=== PATIENT | female | born 1985 | race Caucasian/White ===

== ENCOUNTER 2017-04-15 03:28 | Day surgery (SDC) | payer OTHER ==
[~2017-04-15] VITALS: Ht 160 cm; Wt 80.0 kg
[2017-04-15] MEDS ORDERED: NS 1,000 ML IV ONE (04:15)
[2017-04-15] MEDS ORDERED: MORPHINE 4 MG/ML 1ML SYRINGE IV ONE (04:15)
[2017-04-15] MEDS ORDERED: METOCLOPRAMIDE INJ 10MG/2ML VIAL (J2765) IV ONE (04:15)
[2017-04-15 04:24] LABS: BASO % 0.3 % (0.0-1.0); EOS # 0.2 10^3/uL (0.0-0.50); EOS % 1.5 % (0.0-3.0); IMMATURE GRANULOCYTE % 0.4 % (0-0); LYMPH # 2.1 10^3/uL (1.5-6.5); LYMPH % 18.7 % (24.0-44.0); MEAN CORPUSCULAR HGB CONC 34.6 g/dl (32.0-36.5); MONO % 8.5 % (0.0-5.0); NEUTROPHILS # 8.1 10^3/uL (1.8-7.7); NEUTROPHILS % 70.6 % (36.0-66.0); PLATELET COUNT, AUTOMATED 238 10^3/uL (150-450); RED CELL DISTRIBUTION WIDTH 12.3 % (11.5-14.5); WHITE BLOOD COUNT 11.4 10^3/uL (4.0-10.0)
[2017-04-15 04:48] LABS: CONTROL LINE HCG INT CTR LINE PRESENT
[2017-04-15 04:58] LABS: ALBUMIN 3.7 GM/DL (3.2-5.2); ALKALINE PHOSPHATASE 75 U/L (45-117); ALT/SGPT 20 U/L (12-78); AMYLASE 32 U/L (25-115); ANION GAP 7 MEQ/L (8-16); AST/SGOT 10 U/L (7-37); BILIRUBIN,DIRECT < 0.1 MG/DL (0.0-0.2); BILIRUBIN,TOTAL 0.3 MG/DL (0.2-1.0); BLOOD UREA NITROGEN 16 MG/DL (7-18); CALCIUM LEVEL 9.1 MG/DL (8.5-10.1); CARBON DIOXIDE LEVEL 28 MEQ/L (21-32); CHLORIDE LEVEL 104 MEQ/L (98-107); CREATININE FOR GFR 0.77 MG/DL (0.55-1.02); GLOMERULAR FILTRATION RATE > 60.0 (>60); GLUCOSE, FASTING 107 MG/DL (70-105); POTASSIUM SERUM 3.8 MEQ/L (3.5-5.1); SODIUM LEVEL 139 MEQ/L (136-145); TOTAL PROTEIN 7.8 GM/DL (6.4-8.2)
[2017-04-15] MEDS ORDERED: HYDROmorphone HCL 1 MG/ML SYRINGE (J1170) IV ONE (05:30)
[2017-04-15] MEDS ORDERED: ISOVUE-370 76% 100ML VIAL (Q9967) As Ordered ONE (06:14)
--- NOTE | 2017-04-15 07:00 | REPUSA ---
CLINICAL HISTORY: Abdominal pain. TECHNIQUE: Multiple axial, sagittal and coronal CT images were obtained through the abdomen and pelvi s after administration of oral and intravenous contrast material. COMMENTS: Impacted gallstones at the neck of the gallbladder. Distended, thickened gallbladder. Surrounding inflammatory fat stranding and minimal free fluid. Moderate amount of fecal residue in the large bowels. 3.5 cm left ovarian cyst. Small amount of free pelvic fluid. The liver is of uniform attenuation without mass or defect. There is no intra or extrahepatic biliary ductal dilatation. The spleen is normal. The pancreas is of normal contour and attenuation characte ristics. There is no evidence of adrenal mass. Both kidneys demonstrate prompt and equal nephrograms. The kidneys are normal in size, shape and conf iguration. There is no evidence of renal or ureteral mass. No renal or ureteral calculi are identifie d. There is no hydroureter or hydronephrosis. No evidence for appendicitis. There is no bowel wall thickening. No evidence for small or large walter l obstruction. There is no evidence of intrinsic or extrinsic bladder mass. Images of the lung bases show no evidence of pleural or parenchymal mass. There are no pleural effusi ons. The bony structures are free of lytic or blastic lesions. Multilevel degenerative changes are seen in volving the thoracolumbar spine. Scattered calcifications are seen involving the aorta and major bran ches compatible with atherosclerosis. IMPRESSION: Cholelithiasis. Suspected mild acute cholecystitis. Left ovarian cyst. Small amount of free pelvic fluid. Thank you for your kind referral of this patient.
[2017-04-15] MEDS ORDERED: PIPERACILLIN/TAZOBACTAM SOD 3.375 GM in APPROPRIATE DILUENT 1 EA IV ONE (07:45)
--- NOTE | 2017-04-15 08:39 | REP ---
Clinical: Upper abdominal pain. Technique: Real time todd scale ultrasound examination using curved array transducer. Findings: The gallbladder is distended measuring 11.5 cm in length and approximately 4.2 cm diameter with mild wall thickening to 4 mm and trace pericholecystic fluid. Layering sludge and small stones are identified within the gallbladder along with a 19 mm stone obstructing the gallbladder neck/cystic duct. There is no evidence for biliary ductal dilatation and the common bile duct currently measures 5.6 mm diameter. Liver and visualized pancreas are unremarkable and without focal pancreatic or hepatic lesions identified. The right kidney is normal in reniform shape without hydronephrosis and measures 11.9 x 7.1 x 5.5 cm. No significant ascites noted. Impression: Findings described above consistent with acute cholecystitis possibly secondary to a 19 mm gallstone which appears to be lodged at the junction of the gallbladder neck/cystic duct. Signed by Joao Turner MD 04/15/2017 08:30 A
[2017-04-15] MEDS ORDERED: MORPHINE 2 MG/ML 1ML SYRINGE IV PRN (10:30)
[2017-04-15] MEDS ORDERED: ONDANSETRON 4MG/2ML VIAL (J2405) IV PRN ×2 (10:30→16:45)
[2017-04-15] MEDS ORDERED: MORPHINE 4 MG/ML 1ML SYRINGE IV PRN (10:30)
[2017-04-15] MEDS ORDERED: KETOROLAC 30 MG/ML VIAL (J1885) IV PRN (10:30)
[2017-04-15] MEDS ORDERED: METOCLOPRAMIDE INJ 10MG/2ML VIAL (J2765) IV PRN (10:30)
[2017-04-15] MEDS ORDERED: METOCLOPRAMIDE INJ 10MG/2ML VIAL (J2765) As Ordered ONE (10:46)
[2017-04-15] MEDS ORDERED: ACET50TAOT PO (10:47)
--- NOTE | 2017-04-15 11:14 | HPE ---
DATE OF ADMISSION: 04/15/2017 SURGICAL DAY CARE STATUS: 04/15/2017 REASON FOR ADMISSION: Cholelithiasis with acute cholecystitis. HISTORY OF PRESENT ILLNESS: The patient is a pleasant 31-year-old woman who presented to the emergency department at 3:28 in the morning of [id number] of April complaining of upper abdominal pain. She reports that over the last week she has had frequent bouts of pain that awaken her in the filter press tender head hours and last for hours. She reports that she has had perhaps 3 days over the past week where she did not awaken with pain. Each other night, she has been awakened as reported. She describes pain that starts slightly to the left of the midline in the left upper quadrant, but then settles into the epigastrium and becomes severe. She has associated nausea. She reports that she had one episode of pain perhaps 3 years ago, but this was not evaluated at the time. One year ago, she reports having had a similar pain, but again no further testing was done. She reports that over the last 2 days her pain has not completely resolved at any time. She has had a persistent dull ache. She has identified that eating seems to make the pain worse and so she has been cutting back on her diet the last few days. Last evening, she went to bed still feeling somewhat uncomfortable and was awakened at the 1:38 this morning by severe pain. She presented to the emergency department and had one episode of emesis after presenting. She received some morphine without any significant improvement in her pain and subsequently had a small dose of Dilaudid which provided relief. She still reports some discomfort present. On exam, she was found to have some right upper quadrant tenderness. A CT scan of the abdomen and pelvis showed some gallbladder wall thickening and distention. An ultrasound confirmed gallbladder wall thickening with a wall thickness measured at 4 mm. She has some sludge or small stones within the gallbladder and a single larger stone that appears to be impacted in the area of the gallbladder neck. Her white blood cell count was slightly elevated on presentation to the emergency department. Her clinical picture is felt to be consistent with acute cholecystitis and she is admitted now to be placed on antibiotics with cholecystectomy. ALLERGIES: The patient denies any known drug allergies. MEDICATIONS: The patient is not normally on any prescription medications. She has taken some omeprazole over the last 2 days to see if this would help, but this was not of any clear benefit. SURGICAL HISTORY: Significant for a right ovarian cystectomy many years ago for a large cyst with torsion. MEDICAL HISTORY: She is generally healthy. She is a never smoker and denies alcohol use. She has two children, ages 8 and 3. 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 FAMILY HISTORY: Noncontributory. REVIEW OF SYSTEMS: Reveals no history of chest pain or palpitations. She denies any shortness of breath, wheezing or cough. She has had no melena, hematochezia, diarrhea, or constipation. She does report that her bowel movements have been somewhat more frequent and softer the last week or so. She is not having any dysuria or hematuria. She denies any bone or joint problems. She has no history of chronic severe headaches, seizures or stroke. The remainder of the review of systems is unremarkable. PHYSICAL EXAMINATION: The patient's height is recorded as 5 feet 3 inches with a weight of 80 kg. She is alert, oriented and pleasant. Her most recent vital signs showed her to be afebrile with a pulse of 77 and a blood pressure of 114/66. Sclerae are anicteric. Mucous membranes are moist to somewhat tacky. The neck is supple without mass. She has no palpable supraclavicular nodes. There is no cervical bruit. Heart exam shows a regular rate and rhythm. The lungs are clear to auscultation. The abdomen is mildly obese. She has some bowel sounds present. The abdomen is soft. There is no significant tenderness to percussion. She has some mild referred tenderness from the left upper quadrant to the right upper quadrant on palpation. She has some mild to moderate direct tenderness in the right subcostal area. There is no mass appreciated. She has no guarding or rebound. There is no evidence of abdominal hernia. The lower extremities show palpable posterior tibial pulses and she has palpable radial pulses bilaterally. LABORATORY STUDIES: Show a white count of 11.4 with a differential count showing 71% neutrophils, 19% lymphocytes and 8 monocytes. Hemoglobin is 12 with hematocrit of 36 and the platelet count is 238,000. Urinalysis shows no evidence of a urinary tract infection. Chemistries show a glucose of 107, BUN of 16, creatinine 0.8. Electrolytes are normal with normal liver function tests. She has a lipase that is normal at 113. Amylase is 32. Her hCG is negative. Her CT scan and ultrasound images are reviewed personally. I would certainly agree that she has some gallbladder wall thickening with a stone in the gallbladder neck and some others sludge or stones within the gallbladder. IMPRESSION: Cholelithiasis with acute cholecystitis. PLAN: The patient will be brought into the hospital on surgical day care status. She was started on antibiotics by the emergency room (ER) physician and these will be continued. She will be kept nothing by mouth (n.p.o.) with some IV hydration. She will be provided with analgesics or antiemetics as necessary. I counseled her that the treatment for acute cholecystitis is cholecystectomy. I will add her to the urgent schedule for today. The schedule will probably have us preceding later in the day, but I do not see a problem with this. She was counseled for the surgery of laparoscopic cholecystectomy to include the risks. She had an opportunity to ask questions and desires to proceed with the plan as I have outlined it.
[2017-04-15] MEDS: LR 1,000 ML IV SCH ×2 (11:31→20:27)
[2017-04-15] MEDS: PIPERACILLIN/TAZOBACTAM SOD 2.25 GM in APPROPRIATE DILUENT 1 EA IV SCH ×2 (14:00→15:06)
[2017-04-15] MEDS ORDERED: BUPIVACAINE HCL 0.25% 30 ML VIAL As Ordered ONE (15:01)
[2017-04-15] MEDS ORDERED: fentaNYL 250 MCG/5 ML INJECTION (J3010) As Ordered ONE (15:14)
[2017-04-15] MEDS ORDERED: ROCURONIUM BROMIDE 50 MG/5 ML VIAL As Ordered ONE (15:14)
[2017-04-15] MEDS ORDERED: PROPOFOL 200 MG/20 ML VIAL As Ordered ONE (15:14)
[2017-04-15] MEDS ORDERED: MIDAZOLAM INJ 2 MG/2 ML VIAL (J2250) As Ordered ONE (15:14)
[2017-04-15] MEDS ORDERED: PHENYLephrine HCL 500 MCG/5 ML (100MCG/ML) SYRINGE (J2370) As Ordered ONE (15:14)
[2017-04-15] MEDS ORDERED: LIDOCAINE 2% INJ 100 MG/5 ML SDV (FOR ANES.) As Ordered ONE (15:14)
[2017-04-15] MEDS ORDERED: dexameTHASONE 4 MG/ML 1ML VIAL (J1100) As Ordered ONE (15:21)
[2017-04-15] MEDS ORDERED: KETOROLAC 60 MG/2 ML VIAL (J1885) As Ordered ONE (15:36)
[2017-04-15] MEDS ORDERED: ONDANSETRON 4MG/2ML VIAL (J2405) As Ordered ONE (15:36)
[2017-04-15] MEDS ORDERED: GLYCOPYRROLATE INJ 0.2 MG/ML 2 ML VIAL As Ordered ONE (15:36)
[2017-04-15] MEDS ORDERED: NEOSTIGMINE 10 MG/10 ML VIAL (J2710) As Ordered ONE (15:36)
[2017-04-15] MEDS ORDERED: DESFLURANE 240 ML INHALANT As Ordered ONE (16:06)
[2017-04-15] MEDS ORDERED: ACETAMINOPHEN TAB 650MG DOSE (2X325MG) PO PRN (16:30)
[2017-04-15] MEDS ORDERED: MORPHINE 10 MG/ML 1ML VIAL IV PRN (16:45)
[2017-04-15] MEDS ORDERED: LR 1,000 ML IV SCH (16:45)
[2017-04-15] MEDS ORDERED: fentaNYL 100 MCG/2 ML INJECTION (J3010) As Ordered ONE (16:52)
[2017-04-15] MEDS: fentaNYL 100 MCG/2 ML INJECTION (J3010) IV PRN ×4 (16:54→17:09)
[2017-04-15] MEDS ORDERED: NORCO, ANEXSIA 5/325MG TABLET (HYDROcodone/ACETAMINOPHEN) As Ordered ONE (17:00)
[2017-04-15] MEDS: NORCO, ANEXSIA 5/325MG TABLET (HYDROcodone/ACETAMINOPHEN) PO PRN ×2 (17:05→20:26)
[2017-04-15 17:30] VITALS: BP 133/76
[2017-04-15 18:00] VITALS: BP 143/80
[2017-04-15 19:53] VITALS: BP 128/76
[2017-04-15 22:00] VITALS: BP 133/71
[2017-04-16] MEDS: NORCO, ANEXSIA 5/325MG TABLET (HYDROcodone/ACETAMINOPHEN) PO PRN ×4 (01:39→16:03)
[2017-04-16 02:00] VITALS: BP 134/80
[2017-04-16] MEDS: PIPERACILLIN/TAZOBACTAM SOD 2.25 GM in APPROPRIATE DILUENT 1 EA IV SCH ×3 (02:11→14:13)
[2017-04-16] MEDS: LR 1,000 ML IV SCH (02:45)
[2017-04-16 06:00] VITALS: BP 127/66
--- NOTE | 2017-04-16 07:36 | RO ---
DATE OF PROCEDURE: 04/15/2017 PREOPERATIVE DIAGNOSIS: Acute cholecystitis. POSTOPERATIVE DIAGNOSIS: Acute cholecystitis. PROCEDURE PERFORMED: Laparoscopic cholecystectomy. SURGEON: Dr. Jacob De Jesus ANESTHESIA: General. INDICATIONS FOR THE PROCEDURE: The patient is a 31-year-old woman who presented to the emergency department with a 1-week history of on and off pain in the epigastrium. This had been fairly persistent for the last 36 hours. She presented to the emergency department with epigastric discomfort. A CT scan and ultrasound were done in the emergency department. These both confirmed thickening of the gallbladder wall with a stone in the gallbladder neck. The patient's clinical history and testing were felt to be consistent with acute cholecystitis and she is now for a laparoscopic cholecystectomy. OPERATIVE PROCEDURE: The patient was placed under general endotracheal anesthesia. The patient's abdomen was prepped and draped in a sterile fashion. 0.25% Marcaine was infiltrated at each of the trocar sites. A short supraumbilical midline incision was made and deepened through the subcutaneous tissues. The fascia was opened in the midline and the peritoneum was opened bluntly. A Wiley cannula was inserted and the abdomen was inflated with carbon dioxide gas. The laparoscope was inserted. Initial examination showed a normal-appearing liver. The gallbladder was noted to be mildly erythematous and quite edematous. It appeared somewhat distended. Visualized portions of the small and large bowel appeared normal. Two 5 mm trocars were placed in the right upper quadrant and a third 5 mm trocar was placed in the left upper quadrant. The patient was tilted to a reverse Trendelenburg position and rolled to the left. The gallbladder was grasped and elevated. The gallbladder edema seemed most pronounced in the body and neck region of the gallbladder. The peritoneum was opened using the hook cautery. The cholecystic artery was identified first along the left side of the gallbladder neck. This was dissected free, doubly clipped with hemoclips and divided. With further dissection, the junction of the cystic duct and the common bile duct was identified and the cystic duct was then dissected free over a several centimeter distance to the gallbladder neck. The cystic duct was clipped and divided. The gallbladder was then dissected free from the gallbladder bed using cautery dissection. Dissection was somewhat slowed by the marked edema of the gallbladder wall. The gallbladder was not perforated in the course of dissection. The gallbladder was removed completely and placed within an Endopouch. Inspection revealed a small amount of bleeding along the right side of the falciform ligament. Retraction had led to a very small superficial capsular tear. This area was cauterized and inspection showed no evidence of any ongoing bleeding. The gallbladder bed was inspected and there was no bleeding and no bile leak. The right upper quadrant was irrigated and the irrigation was removed. The patient was returned to a flat position. The abdomen was deflated and the trocars were removed. The gallbladder was recovered through the Wiley site and sent for permanent pathology. The fascia at the Wiley site was closed with interrupted simple sutures of #2-0 Vicryl. The skin incisions were all closed with buried #5-0 Vicryl and Steri-Strips. Light dressings were applied. The patient tolerated the procedure well without apparent complication. She was awakened in the operating room, extubated and moved to the recovery room in stable condition. JOHN
[2017-04-16 09:00] VITALS: BP 132/70
[2017-04-16 13:29] VITALS: BP 139/73
[2017-04-16 14:00] VITALS: BP 142/85
[2017-04-16] MEDS ORDERED: NORCOTAB PO (17:18)
--- NOTE | 2017-04-16 17:43 | IPN ---
DATE: 04/16/2017 SUBJECTIVE: The patient is now one day postoperative from a laparoscopic cholecystectomy for acute cholecystitis. She has been tolerating clear liquids well. She denies any nausea or vomiting. She is ambulatory with little discomfort. She has been taking some Cushman tablets intermittently for discomfort. OBJECTIVE: VITAL SIGNS: She is afebrile with stable vitals. INTAKE AND OUTPUT: Show 1550 in, and 1220 out yesterday, and she is taking liquids well today. PHYSICAL EXAMINATION: The patient is alert, oriented and cooperative. Heart and lung exam is unremarkable. The abdomen is mildly obese with active bowel sounds. Her incisions are all healing well with no sign of infection or hematoma. The abdomen is otherwise soft and without undue tenderness. IMPRESSION: Excellent postoperative results one day postop from laparoscopic cholecystectomy. PLAN: The patient will be discharged home today. She can advance her diet as tolerated. I have asked her to followup with me in about 10 days for a final check. She can take Tylenol or ibuprofen as needed for mild pain and I will send in a prescription for a few Cushman tablets to take on an as-needed basis for more severe pain. She can shower 24 hours after the surgery. I instructed her to leave the Steri-Strips in place to come off on their own. She is to call the office for any significant problems.
== END 2017-04-16 18:04 | disposition home or self-care (01) ==
LOC: M ED 03:28 → M SDC 10:20 → M MS5PR 12:18 → M SDC 04-16 18:04
PROVIDERS: ATTEND Surgery
DX: K80.00 Calculus of gallbladder with acute cholecystitis without obstruction (principal); K91.81 Other intraoperative complications of digestive system
CPT/HCPCS: 47562; 74177; 76705; 80048; 80076; 81001; 82150; 83690; 84703; 85025; 87086; 88304; 96374; 96375; 96376; 99284; J1100; J1170; J1885; J2250; J2370; J2405; J2543; J2710; J2765; J3010; Q9967

== ENCOUNTER → 2018-11-07 | Outpatient (REF) | payer OTHER ==
[~2018-11-07] MED LIST: ACET500T15 PO; HYDR-3715 PO
== END ==
LOC: M LABDRWAD 12:20
PROVIDERS: ATTEND Physician Assistant Medical
DX: J02.9 Acute pharyngitis, unspecified (principal)

== ENCOUNTER → 2020-01-02 | Outpatient (REF) | payer OTHER | LOC: M LAB REF 10:11 | PROVIDERS: ATTEND Physician Assistant | DX: N39.0 Urinary tract infection, site not specified (principal) ==

== ENCOUNTER → 2020-06-15 | Outpatient (REF) | payer OTHER ==
[2020-06-15 12:51] LABS: BASO % 0.6 % (0.0-1.0); EOS # 0.1 10^3/uL (0.0-0.5); EOS % 2.1 % (0.0-3.0); HEMOGLOBIN 11.3 g/dl (12.0-15.5); LYMPH # 1.7 10^3/uL (1.5-5.0); LYMPH % 25.5 % (24.0-44.0); MEAN CORPUSCULAR HEMOGLOBIN 26.5 pg (27.0-33.0); MEAN CORPUSCULAR HGB CONC 32.3 g/dl (32.0-36.5); MONO # 0.4 10^3/uL (0.0-0.8); MONO % 5.6 % (0.0-5.0); NEUTROPHILS # 4.4 10^3/uL (1.5-8.5); NEUTROPHILS % 65.7 % (36.0-66.0); PLATELET COUNT, AUTOMATED 243 10^3/uL (150-450); RED BLOOD COUNT 4.27 10^6/uL (4.00-5.40); WHITE BLOOD COUNT 6.6 10^3/uL (4.0-10.0)
[2020-06-15 13:14] LABS: ALBUMIN 3.8 GM/DL (3.2-5.2); ALT/SGPT 19 U/L (12-78); BILIRUBIN,TOTAL 0.2 MG/DL (0.2-1.0); BLOOD UREA NITROGEN 15 MG/DL (7-18); CALCIUM LEVEL 9.2 MG/DL (8.5-10.1); CARBON DIOXIDE LEVEL 28 MEQ/L (21-32); CHLORIDE LEVEL 104 MEQ/L (98-107); CREATININE FOR GFR 0.63 MG/DL (0.55-1.30); GLOMERULAR FILTRATION RATE > 60.0 (>60); GLUCOSE, FASTING 105 MG/DL (70-100); POTASSIUM SERUM 4.1 MEQ/L (3.5-5.1); SODIUM LEVEL 140 MEQ/L (136-145); TOTAL PROTEIN 7.4 GM/DL (6.4-8.2)
[2020-06-15 13:56] LABS: HIV 1&2 SCREEN CENTAUR NEGATIVE (NEGATIVE)
== END ==
LOC: M SFHCADAM 10:21
PROVIDERS: ATTEND Physician Assistant Medical
DX: E66.9 Obesity, unspecified (principal); R03.0 Elevated blood-pressure reading, without diagnosis of hypertension; Z11.59 Encounter for screening for other viral diseases; Z11.4 Encounter for screening for human immunodeficiency virus [HIV]; R53.83 Other fatigue
CPT/HCPCS: 80053; 84443; 85025; 86803; 87389; G0463

== ENCOUNTER → 2020-07-13 | Outpatient (REF) | payer OTHER ==
[2020-07-13 12:25] LABS: HEMATOCRIT 35.2 % (36.0-47.0); MEAN CORPUSCULAR HEMOGLOBIN 26.5 pg (27.0-33.0); MEAN CORPUSCULAR HGB CONC 31.3 g/dl (32.0-36.5); MEAN CORPUSCULAR VOLUME 84.8 fl (80.0-96.0); PLATELET COUNT, AUTOMATED 269 10^3/uL (150-450); RED BLOOD COUNT 4.15 10^6/uL (4.00-5.40)
[2020-07-13 12:58] LABS: FOLATE 7.7 NG/ML; PERCENT SATURATION 10.8 % (13.2-45.0)
[2020-07-13 13:59] LABS: HEMOGLOBIN A1c 5.2 %
== END ==
LOC: M SFHCADAM 08:36
PROVIDERS: ATTEND Physician Assistant Medical
DX: E66.9 Obesity, unspecified (principal); D64.9 Anemia, unspecified; R73.01 Impaired fasting glucose
CPT/HCPCS: 82607; 82728; 82746; 83036; 83550; 85027; G0463

== ENCOUNTER → 2020-10-08 | Outpatient (REF) | payer OTHER | LOC: M SFHCWAGY 12:43 | PROVIDERS: ATTEND Nurse Practitioner Women's Health | DX: Z12.4 Encounter for screening for malignant neoplasm of cervix (principal) | CPT/HCPCS: 87624; G0123; G0463 ==

== ENCOUNTER → 2021-04-21 | Outpatient (CLI) | payer OTHER ==
[~2021-04-21] MED LIST changes: +PANT40TA29 PO
== END ==
LOC: M LABSMTC 11:14
PROVIDERS: ATTEND Anesthesiology
DX: Z01.812 Encounter for preprocedural laboratory examination (principal); Z20.822 Contact with and (suspected) exposure to COVID-19

== ENCOUNTER 2021-04-26 10:44 | Day surgery (SDC) | payer OTHER ==
[~2021-04-26] VITALS: Ht 160 cm; Wt 93.0 kg
[~2021-04-26 10:44] MED LIST changes: +LIDOCAINE 2% 100MG/5ML SDV (FOR ANES.) As Ordered ONE; +NS 1,000 ML IV ONE; +propofoL 500 MG/50 ML VIAL As Ordered ONE
[2021-04-26] MEDS ORDERED: propofoL 200 MG/20 ML VIAL As Ordered ONE (12:22)
--- NOTE | 2021-04-26 12:53 | ROOR ---
Patient Name: Annelise Lopez Procedure Date: 04/26/2021 12:04 PM Date of : 1985 Age: 35 Room: [facility] Gender: Female Note Status: Finalized Procedure: Upper GI endoscopy Indications: Dyspepsia, Dysphagia Providers: Artemio Zheng MD Referring MD: JENSEN Tracey Requesting Provider: Medicines: Monitored Anesthesia Care Complications: No immediate complications. Procedure: Pre-Anesthesia Assessment: - Prior to the procedure, a History and Physical was performed, and patient medications and allergies were reviewed. The patient is competent. The risks and benefits of the procedure and the sedation options and risks were discussed with the patient. All questions were answered and informed consent was obtained. Patient identification and proposed procedure were verified by the physician, the nurse and the anesthesiologist in the procedure room. Mental Status Examination: alert and oriented. Airway Examination: normal oropharyngeal airway and neck mobility. Respiratory Examination: clear to auscultation. CV Examination: normal. Prophylactic Antibiotics: The patient does not require prophylactic antibiotics. Prior Anticoagulants: The patient has taken no previous anticoagulant or antiplatelet agents. ASA Grade Assessment: II - A patient with mild systemic disease. After reviewing the risks and benefits, the patient was deemed in satisfactory condition to undergo the procedure. The anesthesia plan was to use monitored anesthesia care (MAC). Immediately prior to administration of medications, the patient was re-assessed for adequacy to receive sedatives. The heart rate, respiratory rate, oxygen saturations, blood pressure, adequacy of pulmonary ventilation, and response to care were monitored throughout the procedure. The physical status of the patient was re-assessed after the procedure. The Endoscope was introduced through the mouth, and advanced to the second part of duodenum. The upper GI endoscopy was accomplished without difficulty. The patient tolerated the procedure well. Findings: Mucosal changes including longitudinal furrows, white plaques, crepe paper esophagus and longitudinal markings were found in the middle third of the esophagus and in the lower third of the esophagus. Biopsies were obtained from the proximal and distal esophagus with cold forceps for histology of suspected eosinophilic esophagitis. Verification of patient identification for the specimen was done by the physician and nurse using the patient's name, date and medical record number. Estimated blood loss was minimal. The Z-line was regular and was found at the gastroesophageal junction. There is no endoscopic evidence of stenosis or stricture in the entire esophagus. Scattered mild inflammation characterized by erythema and granularity was found in the gastric antrum. Biopsies were taken with a cold forceps for Helicobacter pylori testing. Normal mucosa was found in the duodenal bulb, in the second portion of the duodenum, in the area of the papilla and in the third portion of the duodenum. Biopsies for histology were taken with a cold forceps for evaluation of celiac disease. Impression: - Esophageal mucosal changes suggestive of eosinophilic esophagitis. Biopsied. - Z-line regular, at the gastroesophageal junction. - Gastritis. Biopsied. - Normal mucosa was found in the duodenal bulb, in the second portion of the duodenum, in the area of the papilla and in the third portion of the duodenum. Biopsied. Recommendation: - Patient has a contact number available for emergencies. The signs and symptoms of potential delayed complications were discussed with the patient. Return to normal activities tomorrow. Written discharge instructions were provided to the patient. - High fiber diet. - Continue present medications. - Await pathology results. - Return to GI clinic in [facility] (address: [address] [place] [address], [address] [place] [address], [place], [place],[address]) in 4 -- 6 weeks. Please call GI clinic @ [phone] for apppointment date and time. - Return to primary care physician. - Check CBC, serum iron , transferrin and ferritin levels (fasting labs) in 2 months. Procedure Code(s): --- Professional --- 98717, Esophagogastroduodenoscopy, flexible, transoral; with biopsy, single or multiple Diagnosis Code(s): --- Professional --- K22.8, Other specified diseases of esophagus K29.70, Gastritis, unspecified, without bleeding R10.13, Epigastric pain R13.10, Dysphagia, unspecified CPT copyright 2019 [employer]. All rights reserved. The codes documented in this report are preliminary and upon storage garage manager review may be revised to meet current compliance requirements. Artemio Zheng MD Artemio Zheng MD 04/26/2021 12:53:20 PM Electronically signed by Artemio Zheng MD Number of Addenda: 0 Note Initiated On: 04/26/2021 12:04 PM Estimated Blood Loss: Estimated blood loss was minimal.
--- NOTE | 2021-04-26 12:58 | ROOR ---
Patient Name: Annelise Lopez Procedure Date: 04/26/2021 12:04 PM Date of : 1985 Age: 35 Room: [facility] Gender: Female Note Status: Finalized Procedure: Colonoscopy Indications: Iron deficiency anemia Providers: Artemio Zheng MD Referring MD: JENSEN Tracey Requesting Provider: Medicines: Monitored Anesthesia Care Complications: No immediate complications. Procedure: Pre-Anesthesia Assessment: - Prior to the procedure, a History and Physical was performed, and patient medications and allergies were reviewed. The patient is competent. The risks and benefits of the procedure and the sedation options and risks were discussed with the patient. All questions were answered and informed consent was obtained. Patient identification and proposed procedure were verified by the physician, the nurse and the anesthesiologist in the procedure room. Mental Status Examination: alert and oriented. Airway Examination: normal oropharyngeal airway and neck mobility. Respiratory Examination: clear to auscultation. CV Examination: normal. Prophylactic Antibiotics: The patient does not require prophylactic antibiotics. Prior Anticoagulants: The patient has taken no previous anticoagulant or antiplatelet agents. ASA Grade Assessment: II - A patient with mild systemic disease. After reviewing the risks and benefits, the patient was deemed in satisfactory condition to undergo the procedure. The anesthesia plan was to use monitored anesthesia care (MAC). Immediately prior to administration of medications, the patient was re-assessed for adequacy to receive sedatives. The heart rate, respiratory rate, oxygen saturations, blood pressure, adequacy of pulmonary ventilation, and response to care were monitored throughout the procedure. The physical status of the patient was re-assessed after the procedure. The Colonoscope was introduced through the anus and advanced to the terminal ileum, with identification of the appendiceal orifice and IC valve. The colonoscopy was performed without difficulty. The patient tolerated the procedure well. The quality of the bowel preparation was good. The terminal ileum, ileocecal valve, appendiceal orifice, and rectum were photographed. Scope insertion time was 2 minutes. Scope withdrawal time was 8 minutes. The total duration of the procedure was 10 minutes. Findings: The perianal and digital rectal examinations were normal. The terminal ileum appeared normal. No other significant abnormalities were identified in a careful examination of the remainder of the colon. Normal mucosa was found in the entire colon. Biopsies for histology were taken with a cold forceps from the right colon, left colon and rectosigmoid colon for evaluation of microscopic colitis. Verification of patient identification for the specimen was done by the physician and nurse using the patient's name, date and medical record number. Estimated blood loss was minimal. Non-bleeding external and internal hemorrhoids were found during retroflexion. The hemorrhoids were small. Impression: - The examined portion of the ileum was normal. - Normal mucosa in the entire examined colon. Biopsied. - Non-bleeding external and internal hemorrhoids. Recommendation: - Patient has a contact number available for emergencies. The signs and symptoms of potential delayed complications were discussed with the patient. Return to normal activities tomorrow. Written discharge instructions were provided to the patient. - High fiber diet. - Continue present medications. - Await pathology results. - Repeat colonoscopy at age 52 for screening purposes. - Return to GI clinic in [facility] (address: [address] [place] [address], [address] [place] [address], [place], [place],[address]) in 4 -- 6 weeks. Please call GI clinic @ [phone] for apppointment date and time. - Return to primary care physician. Procedure Code(s): --- Professional --- 34211, Colonoscopy, flexible; with biopsy, single or multiple Diagnosis Code(s): --- Professional --- K64.8, Other hemorrhoids D50.9, Iron deficiency anemia, unspecified CPT copyright 2019 [employer]. All rights reserved. The codes documented in this report are preliminary and upon physical scientist review may be revised to meet current compliance requirements. Artemio Zheng MD Artemio Zheng MD 04/26/2021 12:58:03 PM Electronically signed by Artemio Zheng MD Number of Addenda: 0 Note Initiated On: 04/26/2021 12:04 PM Estimated Blood Loss: Estimated blood loss was minimal.
[2021-04-26 13:13] VITALS: BP 137/81
== END 2021-04-26 13:25 | disposition home or self-care (01) ==
LOC: M OPP 10:44
PROVIDERS: ATTEND Internal Medicine Gastroenterology
DX: D50.9 Iron deficiency anemia, unspecified (principal); K64.8 Other hemorrhoids; K22.89 Other specified disease of esophagus; K29.70 Gastritis, unspecified, without bleeding; R10.13 Epigastric pain; R13.10 Dysphagia, unspecified; Z80.0 Family history of malignant neoplasm of digestive organs

== ENCOUNTER → 2021-05-25 | Outpatient (REF) | payer OTHER ==
[~2021-05-25] MED LIST changes: -LIDOCAINE 2% 100MG/5ML SDV (FOR ANES.) As Ordered ONE; -NS 1,000 ML IV ONE; -propofoL 500 MG/50 ML VIAL As Ordered ONE
[2021-05-25 13:20] LABS: APPEARANCE, URINE HAZY (CLEAR); BACTERIA, URINE AUTO NEGATIVE (NEGATIVE); BILIRUBIN, URINE AUTO NEGATIVE (NEGATIVE); BLOOD, URINE BLOOD NEGATIVE (NEGATIVE); COLOR, URINE YELLOW (YELLOW); GLUCOSE, URINE (UA) AUTO NEGATIVE (NEGATIVE); KETONE, URINE AUTO NEGATIVE (NEGATIVE); LEUKOCYTE ESTERASE, URINE AUTO NEGATIVE (NEGATIVE); MUCUS, URINE SMALL (NEGATIVE); NITRITE, URINE AUTO NEGATIVE (NEGATIVE); PROTEIN, URINE AUTO NEGATIVE (NEGATIVE); RBC, URINE AUTO 1 /HPF (0-3); SQUAMOUS EPITHELIAL CELL UR AU 6 /HPF (0-6); UROBILINOGEN, URINE AUTO 0.2 mg/dL (0.0-2.0); WBC, URINE AUTO 1 /HPF (0-3)
== END ==
LOC: M SFHCADAM 12:36
PROVIDERS: ATTEND Physician Assistant Medical
DX: R35.0 Frequency of micturition (principal)

== ENCOUNTER 2022-06-27 10:00 | Emergency (ER) | payer OTHER ==
[~2022-06-27] VITALS: Ht 160 cm; Wt 93.2 kg
[~2022-06-27 10:00] MED LIST changes: +IRON27TA2 PO
[2022-06-27 10:01] VITALS: BP 135/74
== END 2022-06-27 10:10 | disposition left against medical advice (07) ==
LOC: M ED 10:00
DX: Z53.21 Procedure and treatment not carried out due to patient leaving prior to being seen by health care provider (principal)

== ENCOUNTER → 2022-06-29 | Outpatient (CLI) | payer OTHER | LOC: M PLAIMG 11:31 | PROVIDERS: ATTEND Physician Assistant | DX: M25.552 Pain in left hip (principal) ==

== ENCOUNTER → 2022-08-03 | Outpatient (CLI) | payer OTHER | LOC: M LABSMTC 09:35 | PROVIDERS: ATTEND Anesthesiology | DX: Z01.812 Encounter for preprocedural laboratory examination (principal); Z20.822 Contact with and (suspected) exposure to COVID-19 ==

== ENCOUNTER 2022-08-08 12:51 | Day surgery (SDC) | payer OTHER ==
[~2022-08-08] VITALS: Ht 160 cm; Wt 94.7 kg
[~2022-08-08 12:51] MED LIST changes: +NS 1,000 ML IV ONE
[2022-08-08] MEDS ORDERED: propofoL 200 MG/20 ML VIAL As Ordered ONE ×2 (13:41→14:11)
[2022-08-08] MEDS ORDERED: LIDOCAINE 2% 100MG/5ML SDV (FOR ANES.) As Ordered ONE (13:41)
[2022-08-08] MEDS ORDERED: fentaNYL 100 MCG/2 ML INJECTION As Ordered ONE (13:41)
[2022-08-08] MEDS ORDERED: ONDANSETRON 4MG 2ML VIAL As Ordered ONE (13:42)
[2022-08-08 14:38] VITALS: BP 143/87
== END 2022-08-08 14:55 | disposition home or self-care (01) ==
LOC: M OPP 12:51
PROVIDERS: ATTEND Internal Medicine Gastroenterology
DX: K22.89 Other specified disease of esophagus (principal); K29.70 Gastritis, unspecified, without bleeding; K20.0 Eosinophilic esophagitis; D50.9 Iron deficiency anemia, unspecified; Z79.899 Other long term (current) drug therapy; Z80.0 Family history of malignant neoplasm of digestive organs; Z86.16 Personal history of COVID-19
CPT/HCPCS: 43239; 88305; J2405; J3010

== ENCOUNTER → 2022-12-15 | Outpatient (REF) | payer OTHER ==
[~2022-12-15] MED LIST changes: -NS 1,000 ML IV ONE
[2022-12-15 13:40] LABS: BASO % 0.5 % (0.0-1.0); EOS # 0.2 10^3/uL (0.0-0.5); EOS % 2.5 % (0.0-3.0); HEMOGLOBIN 11.9 g/dl (12.0-15.5); LYMPH # 2.1 10^3/uL (1.5-5.0); LYMPH % 27.9 % (24.0-44.0); MEAN CORPUSCULAR HEMOGLOBIN 26.9 pg (27.0-33.0); MEAN CORPUSCULAR HGB CONC 33.1 g/dl (32.0-36.5); MEAN CORPUSCULAR VOLUME 81.4 fl (80.0-96.0); MONO # 0.6 10^3/uL (0.0-0.8); MONO % 8.3 % (2.0-8.0); NEUTROPHILS # 4.6 10^3/uL (1.5-8.5); NEUTROPHILS % 60.4 % (36.0-66.0); PLATELET COUNT, AUTOMATED 291 10^3/uL (150-450); RED BLOOD COUNT 4.42 10^6/uL (4.00-5.40); WHITE BLOOD COUNT 7.7 10^3/uL (4.0-10.0)
[2022-12-15 14:02] LABS: PERCENT SATURATION 24.1 % (13.2-45.0)
[2022-12-15 14:03] LABS: FERRITIN 8.7 NG/ML (7.3-270.7)
== END ==
LOC: M SFHCADAM 10:32
PROVIDERS: ATTEND Physician Assistant Medical
DX: D50.9 Iron deficiency anemia, unspecified (principal)

== ENCOUNTER 2023-04-06 11:44 | Day surgery (SDC) | payer OTHER ==
[~2023-04-06] VITALS: Ht 160 cm; Wt 94.0 kg
[~2023-04-06 11:44] MED LIST changes: +ALBU6.7H6 INH; +FLUT22IN INH; +NS 1,000 ML IV ONE
[2023-04-06] MEDS ORDERED: propofoL 200 MG/20 ML VIAL As Ordered ONE (13:26)
[2023-04-06] MEDS ORDERED: fentaNYL 100 MCG/2 ML INJECTION As Ordered ONE (13:26)
[2023-04-06 14:32] VITALS: TEMP 98
[2023-04-06 14:50] VITALS: BP 141/84; O2SAT 100
== END 2023-04-06 14:50 | disposition home or self-care (01) ==
LOC: M OPP 11:44
PROVIDERS: ATTEND Internal Medicine Gastroenterology
DX: K20.0 Eosinophilic esophagitis (principal); K22.89 Other specified disease of esophagus; K31.89 Other diseases of stomach and duodenum; D50.9 Iron deficiency anemia, unspecified; Z79.51 Long term (current) use of inhaled steroids
CPT/HCPCS: 43239; 88305; J3010

== ENCOUNTER → 2025-01-23 | Outpatient (REF) | payer OTHER ==
[~2025-01-23] MED LIST changes: -NS 1,000 ML IV ONE
[2025-01-23 13:47] LABS: BASO # 0.1 10^3/uL (0.0-0.2); BASO % 0.7 % (0.0-1.0); EOS # 0.2 10^3/uL (0.0-0.5); EOS % 2.3 % (0.0-3.0); LYMPH # 1.9 10^3/uL (1.5-5.0); LYMPH % 26.3 % (24.0-44.0); MONO # 0.7 10^3/uL (0.0-0.8); MONO % 9.1 % (2.0-8.0); NEUTROPHILS # 4.5 10^3/uL (1.5-8.5); NEUTROPHILS % 61.2 % (36.0-66.0); PLATELET COUNT, AUTOMATED 277 10^3/uL (150-450)
[2025-01-23 13:59] LABS: ALT/SGPT 15 U/L (7.0-40); AST/SGOT 14 U/L (<34); CALCIUM LEVEL 9.2 MG/DL (8.5-10.1); CARBON DIOXIDE LEVEL 27 MMOL/L (20-31); CHLORIDE LEVEL 106 MMOL/L (98-107); CHOLESTEROL LEVEL 121 MG/DL (<200); CHOLESTEROL RISK RATIO 3.09 (<5); CREATININE FOR GFR 0.64 MG/DL (0.55-1.30); GLOMERULAR FILTRATION RATE > 90.0 (>60); LDL CHOLESTEROL 65.3 MG/DL (<100); NON-HDL-C 81.9 MG/DL; POTASSIUM SERUM 4.3 MMOL/L (3.5-5.1); SODIUM LEVEL 144 MMOL/L (136-145); TRIGLYCERIDES LEVEL 83 MG/DL (<150)
[2025-01-23 14:03] LABS: TOTAL 25(OH) VITAMIN D 34.2 NG/ML (20.0-100.0)
[2025-01-23 14:04] LABS: FREE T4 1.30 NG/DL (0.89-1.76)
== END ==
LOC: M SFHCADAM 09:57
PROVIDERS: ATTEND Physician Assistant Medical
DX: E66.9 Obesity, unspecified (principal); K21.9 Gastro-esophageal reflux disease without esophagitis; D50.9 Iron deficiency anemia, unspecified; K20.0 Eosinophilic esophagitis

== ENCOUNTER → 2025-02-18 | Outpatient (CLI) | payer OTHER ==
[2025-02-18 15:23] LABS: BASO # 0.0 10^3/uL (0.0-0.2); BASO % 0.5 % (0.0-1.0); EOS # 0.1 10^3/uL (0.0-0.5); EOS % 1.4 % (0.0-3.0); LYMPH # 1.6 10^3/uL (1.5-5.0); LYMPH % 18.1 % (24.0-44.0); MONO # 0.7 10^3/uL (0.0-0.8); MONO % 7.3 % (2.0-8.0); NEUTROPHILS # 6.4 10^3/uL (1.5-8.5); NEUTROPHILS % 72.5 % (36.0-66.0); PLATELET COUNT, AUTOMATED 338 10^3/uL (150-450)
[2025-02-18 15:31] LABS: ERYTHROCYTE SEDIMENTATION RATE 32 mm/hr (0-20)
[2025-02-18 15:51] LABS: ALT/SGPT 13 U/L (7.0-40); AST/SGOT 11 U/L (<34); C REACTIVE PROTEIN QUANTITATIV < 0.50 MG/DL (<1.0); CALCIUM LEVEL 8.6 MG/DL (8.5-10.1); CARBON DIOXIDE LEVEL 27 MMOL/L (20-31); CHLORIDE LEVEL 102 MMOL/L (98-107); CREATININE FOR GFR 0.61 MG/DL (0.55-1.30); GLOMERULAR FILTRATION RATE > 90.0 (>60); POTASSIUM SERUM 4.2 MMOL/L (3.5-5.1); SODIUM LEVEL 135 MMOL/L (136-145)
[2025-02-20 11:05] LABS: DRVV SCREEN 31.9 SECONDS
[2025-02-20 11:07] LABS: PTT LUPUS TYPE ANTICOAG SCREEN 0.83 (0-1.20)
[2025-02-21 19:48] LABS: LYME TOTAL ANTIBODY CIA 1.08 Index (<=0.90)
[2025-02-21 22:22] LABS: LYME AB IGG BY CIA 1.14 Index (<=0.90); LYME AB IGM BY CIA <= 0.90 Index (<=0.90)
== END ==
LOC: M RAD 12:11
PROVIDERS: ATTEND Physician Assistant Medical
DX: R60.0 Localized edema (principal); M79.605 Pain in left leg; M25.562 Pain in left knee

== ENCOUNTER → 2025-03-04 | Outpatient (REF) | payer OTHER ==
[2025-03-04 14:15] LABS: IRON (FE) 111.0 UG/DL (50-170); PERCENT SATURATION 32.6 % (13.2-45.0)
[2025-03-04 14:17] LABS: VITAMIN B12 LEVEL 811.0 PG/ML (211-911)
[2025-03-07 16:52] LABS: BORRELIA SPECIES DNA NOT DETECTED (NOT DETECT)
== END ==
LOC: M SFHCADAM 10:49
PROVIDERS: ATTEND Physician Assistant Medical
DX: D50.9 Iron deficiency anemia, unspecified (principal); R60.0 Localized edema; M79.605 Pain in left leg

== ENCOUNTER → 2025-04-01 | Outpatient (CLI) | payer OTHER | LOC: M SOG 08:14 | PROVIDERS: ATTEND Physician Assistant | DX: M25.562 Pain in left knee (principal) ==

== ENCOUNTER → 2025-05-12 | Outpatient (CLI) | payer OTHER | LOC: M RAD 07:46 | PROVIDERS: ATTEND Physician Assistant | DX: M94.262 Chondromalacia, left knee (principal); M25.562 Pain in left knee ==